=== PATIENT | female | born 1950 | race Caucasian/White ===

== ENCOUNTER 2020-02-14 09:30 | Emergency (ER) | payer OTHER ==
[~2020-02-14] VITALS: Ht 160 cm; Wt 59.0 kg
[2020-02-14] MEDS ORDERED: DILANTIN100 MG (10:22)
[2020-02-14] MEDS ORDERED: ZESTRIL30 MG (10:22)
[2020-02-14] MEDS ORDERED: PEPCID AC10 MG (10:22)
== END 2020-02-14 16:14 | disposition home or self-care (01) ==
LOC: ER 09:30
DX: K80.20 Calculus of gallbladder without cholecystitis without obstruction (principal); R10.11 Right upper quadrant pain

== ENCOUNTER 2020-12-10 08:30 | Outpatient (CLI) | payer OTHER ==
[~2020-12-10 08:30] MED LIST: DILANTIN100 MG; PEPCID AC10 MG; ZESTRIL30 MG
== END 2020-12-10 08:35 | disposition home or self-care (01) ==
LOC: SONOGRAMA 08:30
PROVIDERS: ATTEND Specialist
DX: K76.0 Fatty (change of) liver, not elsewhere classified (principal); K80.80 Other cholelithiasis without obstruction; K80.10 Calculus of gallbladder with chronic cholecystitis without obstruction